=== PATIENT | male | born 1990 | race Caucasian/White ===

== ENCOUNTER 2020-07-16 01:52 | Emergency (ER) | payer MEDICARE ==
[~2020-07-16] VITALS: Ht 185.4 cm; Wt 100.9 kg
[~2020-07-16 01:52] MED LIST: CARAFATE1 G PO; FLAGYL500 MG PO
[2020-07-16 01:54] VITALS: BP 135/79; Ht 185.4 cm; Wt 100.9 kg
== END 2020-07-16 03:31 | disposition home or self-care (01) ==
LOC: D.ER 01:52
DX: S70.01XA Contusion of right hip, initial encounter (principal); V89.2XXA Person injured in unspecified motor-vehicle accident, traffic, initial encounter; Y93.9 Activity, unspecified; Y92.9 Unspecified place or not applicable; M25.552 Pain in left hip